=== PATIENT | male | born 1975 | race Caucasian/White ===

== ENCOUNTER → 2016-09-29 | Outpatient (CLI) | payer OTHER ==
[~2016-09-29] MED LIST: ACET-1256 PO; CODCAP4 PO; CYAN1CAP3 PO; CYAN500T13 PO; GLUCTAB7 PO; PRT40 PO
[2016-09-29 12:20] LABS: BASO % 0.5 %; BASO ABS # 0.03 K/uL (0-0.2); COMPLETE YES; EOS % 8.7 %; HEMATOCRIT 44.3 % (42-52); IG% 0.2 %; LYMPH % 24.1 %; MEAN CELL VOLUME 90.8 fL (80-100); MEAN CORPUSCULAR HEMOGLOBIN 29.3 pg (25-34); MEAN CORPUSCULAR HGB CONC 32.3 g/dl (32-36); MEAN PLATELET VOLUME 12.1 fL (7.4-10.4); MONO % 9.2 %; NEUT % 57.3 %; PLATELET COUNT 272 K/uL (130-400); RED BLOOD COUNT 4.88 M/uL (4.7-6.1); WHITE BLOOD COUNT 6.65 K/uL (4.8-10.8)
[2016-09-29 12:56] LABS: ALT/SGPT 24 U/L (12-78); BLOOD UREA NITROGEN 14 mg/dl (7-18); BUN/CREATININE RATIO 15.6 (10-20); C-REACTIVE PROTEIN < 0.29 mg/dl (0-0.29); CALCIUM 9.4 mg/dl (8.5-10.1); CARBON DIOXIDE 29 mmol/L (21-32); CHLORIDE 108 mmol/L (98-107); CHOLESTEROL 175 mg/dl (0-200); CREATININE 0.88 mg/dl (0.60-1.40); GLUCOSE 89 mg/dl (70-99); POTASSIUM 3.8 mmol/L (3.5-5.1); SODIUM 144 mmol/L (136-145); TRIGLYCERIDES 82 mg/dl (0-150); VERY LOW DENSITY LIPOPROT CALC 16 mg/dl
[2016-09-29 13:06] LABS: ALB/GLOB RATIO 1.2 (0.9-2); ALKALINE PHOSPHATASE 79 U/L (45-117); AST/SGOT 18 U/L (15-37); CHOLESTEROL/HDL RATIO 3.6; HDL CHOLESTEROL 49 mg/dl; LDL CHOLESTEROL CALCULATED 110 mg/dl
[2016-09-29 13:26] LABS: CYCLIC CITRULLINATED PEPT IGG 0.47 U/mL (0-4.99)
[2016-09-29 14:02] LABS: LYME DISEASE AB IGG NEG (NEG); LYME DISEASE AB IGM NEG (NEG)
[2016-10-02 16:32] LABS: IGA SERUM 207 mg/dL (81-463); TIS TRANS IGA 1 U/mL (<4)
== END | disposition home or self-care (01) ==
LOC: C.LABBFT 09:08
PROVIDERS: ATTEND Internal Medicine
DX: Z00.00 Encounter for general adult medical examination without abnormal findings (principal); Z87.898 Personal history of other specified conditions; K52.9 Noninfective gastroenteritis and colitis, unspecified; E53.8 Deficiency of other specified B group vitamins; R10.13 Epigastric pain; M25.50 Pain in unspecified joint; R21 Rash and other nonspecific skin eruption

== ENCOUNTER → 2016-12-15 | Day surgery (SDC) | payer OTHER ==
[2016-12-04 12:49] VITALS: Ht 171.5 cm; Wt 68.2 kg
[~2016-12-15] VITALS: Ht 171.5 cm; Wt 68.2 kg
[~2016-12-15] MED LIST changes: +CODCAP PO; -CODCAP4 PO; -CYAN1CAP3 PO; -GLUCTAB7 PO; +LIDOCAINE HCL 2% 2 ML VIAL (20MG/ML) ONE; +PROPOFOL IV EMULSION 10 MG/ML 20 ML VIAL IV ONE; -PRT40 PO
[2016-12-15 14:49] VITALS: TEMP 36.9
--- NOTE | 2016-12-15 14:57 | Endo History and Physical ---
History & Physical Date of Service: Dec 15, 2016. Chief Complaint: Abdominal pain, abnormal CT scan Referring Physician: Dr. Megan Valdez History of Present Illness 41 yo CM who presents for colonoscopy secondary to abnormal CT scan and abdominal pain. Past Surgical History Hx Cardiac Surgery: No Hx Internal Defibrillator: No Hx Pacemaker: No Hx Abdominal Surgery: No Hx of Implantable Prosthesis: No Hx Post-Op Nausea and Vomiting: No Hx Cancer Surgery: No Hx Thoracic Surgery: No Hx Orthopedic: Yes (ORIF R FEMUR) Hx Urinary Tract Surgery: No Social History Smoking Status: Former Smoker Hx Substance Use: No Hx Alcohol Use: No (QUIT 11 YRS AGO) Allergies Coded Allergies: NO KNOWN DRUG ALLERGIES (Verified Allergy, Unknown, NONE, 12/15/16) Poison Shaylee Extract/Poison [place] Extra (Verified Allergy, Unknown, BLISTERING , 12/15/16) Unclassified Drugs (Verified Allergy, Unknown, NON PRESCIOUS METALS-RASH WITH BELT MATTY, 12/15/16) Current Medications Reported Home Medications Medications Dose Route/Sig Max Daily Dose Days Date Category Tylenol (Acetaminophen) 500 Mg Tab 500 Mg PO PRN 12/04/16 Reported Vitamin B12 500MCG (Cyanocobalamin) 500 Mcg Tab 1,000 Mcg PO QAM 12/04/16 Reported Cod Liver Oil 1 Cap Cap 1 Cap PO QAM 05/09/16 Reported Vital Signs Weight (Kilograms): 68.18 Height (Feet): 5 Height (Inches): 7.5 Date Time Temp Pulse Resp B/P (MAP) Pulse Ox O2 Delivery O2 Flow Rate FiO2 12/15/16 14:49 36.9 76 18 111/68 (82) 99 Room Air Physical Exam General Appearance: WD/WN, no apparent distress Respiratory/Chest: Auscultation: breath sounds normal Cardiovascular: Heart Auscultation: RRR Abdomen: Bowel Sounds: normal Inspection & Palpation: soft, non-distended, no tenderness, guarding & rebound Assessment and Plan Assessment: 41 yo CM who presents for colonoscopy secondary to abnormal CT scan and abdominal pain. Plan: Proceed with colonoscopy.
--- NOTE | 2016-12-15 16:22 | Discharge Instructions ---
Endoscopy Patient Instructions Date / Procedure(s) Performed Dec 15, 2016. Colonoscopy Allergy Information Coded Allergies: NO KNOWN DRUG ALLERGIES (Verified Allergy, Unknown, NONE, 12/15/16) Poison Shaylee Extract/Poison [place] Extra (Verified Allergy, Unknown, BLISTERING , 12/15/16) Unclassified Drugs (Verified Allergy, Unknown, NON PRESCIOUS METALS-RASH WITH BELT MATTY, 12/15/16) Discharge Date / Findings Dec 15, 2016. Terminal ileitis s/p biopsies Random colon biopsies Medication Instructions 1) Start Entocort 9mg by mouth daily for 8 weeks 2) OK to resume all medications today as prescribed Reported Home Medications Medications Dose Route/Sig Max Daily Dose Days Date Category Tylenol (Acetaminophen) 500 Mg Tab 500 Mg PO PRN 12/04/16 Reported Vitamin B12 500MCG (Cyanocobalamin) 500 Mcg Tab 1,000 Mcg PO QAM 12/04/16 Reported Cod Liver Oil 1 Cap Cap 1 Cap PO QAM 05/09/16 Reported Provider Instructions Activity Restrictions - No exercising or heavy lifting for 24 hours. - Do not drink alcohol the day of the procedure. - Do not drive a car or operate machinery until the day after the procedure. - Do not make any important decisions or sign important papers in 24 hours after the procedure. Following Day: - Return to full activity which may include returning to work/school. Diet Start your diet with liquids and light foods (jello, soup, juice, toast). Then eat your usual diet if not nauseated. Treatment For Common After Affects For mild abdominal pain, bloating, or excessive gas: - Rest - Eat lightly - Lie on right side Follow-Up Information Follow-up with Dr. Megan Valdez as scheduled Anesthesia Information What You Should Know You have had a procedure that required some medicine to reduce anxiety and discomfort. This treatment is called moderate sedation. After receiving the treatment, you may be sleepy, but you will be able to breathe on your own. The effects of the treatment may last for several hours. Follow these instructions along with Activity/Diet recommendations noted above: * Do NOT do anything where dizziness or clumsiness would be dangerous. * Rest quietly at home today, then you can be up and about tomorrow. * Have a responsible person stay with you the rest of today. * You may have had an I.V. today. If so, you may take the dressing off later today. Recommendations Call your doctor if: * Trouble breathing * Continuous vomiting for more than 24 hours * Temperature above 101 degrees * Severe abdominal pain or bloating * Pain not relieved by pain medicine ordered * There is increased drainage or redness from any incision * A large amount of rectal bleeding greater than 2-3 tablespoons. (If you had a polyp/s removed or have hemorrhoids, a small amount of blood - from the rectum is to be expected.) * You have any unanswered questions or concerns. IN THE EVENT OF A SERIOUS EMERGENCY, GO TO THE NEAREST EMERGENCY ROOM Your discharge instructions were prepared by provider John Howard. Patient Instructions Signature Page Gage Carvalho Patient (or Guardian) Signature/Date: I have read and understand the instructions given to me by my caregivers. Caregiver/RN/Doctor Signature/Date: The above-named patient and/or guardian has received patient instructions on this date. + Original Patient Signature Page (only) stays with chart. Please make copy for patient.
--- NOTE | 2016-12-15 16:26 | GI REPORT ---
Procedure Date: 12/15/2016 3:27 PM Procedure: Colonoscopy Indications: Abdominal pain in the right lower quadrant, Abnormal CT of the GI tract Medicines: Monitored Anesthesia Care Complications: No immediate complications. Estimated Blood Loss: Estimated blood loss: none. Procedure: Pre-Anesthesia Assessment: - Prior to the procedure, a History and Physical was performed, and patient medications and allergies were reviewed. The patient's tolerance of previous anesthesia was also reviewed. The risks and benefits of the procedure and the sedation options and risks were discussed with the patient. All questions were answered, and informed consent was obtained. Prior Anticoagulants: The patient has taken no previous anticoagulant or antiplatelet agents. ASA Grade Assessment: II - A patient with mild systemic disease. After reviewing the risks and benefits, the patient was deemed in satisfactory condition to undergo the procedure. After I obtained informed consent, the scope was passed under direct vision. Throughout the procedure, the patient's blood pressure, pulse, and oxygen saturations were monitored continuously. The scope was introduced through the anus and advanced to the terminal ileum. The colonoscopy was performed without difficulty. The patient tolerated the procedure well. The quality of the bowel preparation was good. The terminal ileum, ileocecal valve, appendiceal orifice, and rectum were photographed. Findings: The terminal ileum contained multiple five mm ulcers. No bleeding was present. Biopsies were taken with a cold forceps for histology. The colon (entire examined portion) appeared normal. Multiple random biopsies were obtained with cold forceps for histology in the entire colon. Impression: - Multiple ulcers in the terminal ileum. Biopsied. - The entire examined colon is normal. - Multiple random biopsies were obtained in the entire colon. Recommendation: - Resume previous diet. - Use budesonide 9 mg PO one time per day for 8 weeks. - Repeat colonoscopy for surveillance based on pathology results. - Return to GI office in 2 weeks. John Howard DO 12/15/2016 4:25:36 PM This report has been signed electronically. Note Initiated On: 12/15/2016 3:27 PM I attest to the content of the Intraoperative Record and orders documented therein, exceptions below
--- NOTE | 2016-12-15 16:40 | Anesthesiology Progress Note ---
Anesthesia Post Op Note Date & Time Dec 15, 2016 at 16:40 Vital Signs Pain Intensity: 0 Vital Signs Past 12 Hours Date Time Temp Pulse Resp B/P (MAP) Pulse Ox O2 Delivery O2 Flow Rate FiO2 12/15/16 16:37 58 18 100/80 (87) 98 Room Air 12/15/16 16:22 65 16 91/53 (66) 98 Room Air 12/15/16 14:49 36.9 76 18 111/68 (82) 99 Room Air Notes Mental Status: alert / awake / arousable, participated in evaluation Pt Amnestic to Procedure: Yes Nausea / Vomiting: adequately controlled Pain: adequately controlled Airway Patency, RR, SpO2: stable & adequate BP & HR: stable & adequate Hydration State: stable & adequate Anesthetic Complications: no major complications apparent
[2016-12-15 16:52] VITALS: BP 113/62; PULSE 52; O2SAT 96
== END | disposition home or self-care (01) ==
LOC: C.GI 14:30
PROVIDERS: ATTEND Internal Medicine
DX: K52.9 Noninfective gastroenteritis and colitis, unspecified (principal); Z87.891 Personal history of nicotine dependence

== ENCOUNTER → 2016-12-24 | Outpatient (CLI) | payer OTHER ==
[~2016-12-24] MED LIST changes: -LIDOCAINE HCL 2% 2 ML VIAL (20MG/ML) ONE; -PROPOFOL IV EMULSION 10 MG/ML 20 ML VIAL IV ONE
[2016-12-24 12:22] LABS: BASO % 0.3 %; BASO ABS # 0.03 K/uL (0-0.2); COMPLETE YES; EOS % 2.2 %; HEMATOCRIT 44.2 % (42-52); IG% 0.2 %; LYMPH % 16.5 %; LYMPH ABS # 1.57 K/uL (1.2-3.4); MEAN CELL VOLUME 90.8 fL (80-100); MEAN PLATELET VOLUME 12.1 fL (7.4-10.4); MONO % 7.2 %; NEUT % 73.6 %; PLATELET COUNT 267 K/uL (130-400); RED BLOOD COUNT 4.87 M/uL (4.7-6.1); WHITE BLOOD COUNT 9.49 K/uL (4.8-10.8)
[2016-12-24 12:45] LABS: ALT/SGPT 22 U/L (12-78); AST/SGOT 14 U/L (15-37); BLOOD UREA NITROGEN 15 mg/dl (7-18); BUN/CREATININE RATIO 15.7 (10-20); C-REACTIVE PROTEIN < 0.29 mg/dl (0-0.29); CARBON DIOXIDE 30 mmol/L (21-32); CHLORIDE 108 mmol/L (98-107); CREATININE 0.94 mg/dl (0.60-1.40); GLUCOSE 85 mg/dl (70-99); POTASSIUM 3.7 mmol/L (3.5-5.1); SODIUM 142 mmol/L (136-145)
[2016-12-24 12:46] LABS: ALB/GLOB RATIO 1.2 (0.9-2); ALKALINE PHOSPHATASE 78 U/L (45-117)
[2016-12-24 12:49] LABS: HEPATITIS B AB NEG
[2016-12-26 12:09] LABS: QUANTIF TB AG-NIL <0.00 IU/ML; QUANTIFERON NIL 0.04 IU/ML
== END | disposition home or self-care (01) ==
LOC: C.LAB1850 10:38
PROVIDERS: ATTEND Registered Nurse
DX: K50.00 Crohn's disease of small intestine without complications (principal)

== ENCOUNTER → 2017-01-21 | Outpatient (CLI) | payer OTHER ==
[2017-01-21 12:23] LABS: BASO % 0.5 %; BASO ABS # 0.05 K/uL (0-0.2); COMPLETE YES; EOS % 2.5 %; HEMATOCRIT 46.2 % (42-52); IG% 0.3 %; MEAN CELL VOLUME 92.8 fL (80-100); MEAN CORPUSCULAR HEMOGLOBIN 29.7 pg (25-34); MEAN PLATELET VOLUME 11.8 fL (7.4-10.4); NEUT % 64.7 %; PLATELET COUNT 272 K/uL (130-400); RED BLOOD COUNT 4.98 M/uL (4.7-6.1); WHITE BLOOD COUNT 10.43 K/uL (4.8-10.8)
[2017-01-21 12:54] LABS: ALT/SGPT 23 U/L (12-78); BLOOD UREA NITROGEN 20 mg/dl (7-18); BUN/CREATININE RATIO 20.9 (10-20); C-REACTIVE PROTEIN < 0.29 mg/dl (0-0.29); CALCIUM 9.3 mg/dl (8.5-10.1); CARBON DIOXIDE 30 mmol/L (21-32); CHLORIDE 107 mmol/L (98-107); CREATININE 0.95 mg/dl (0.60-1.40); GLUCOSE 85 mg/dl (70-99); POTASSIUM 4.1 mmol/L (3.5-5.1); SODIUM 140 mmol/L (136-145)
[2017-01-21 12:56] LABS: ALB/GLOB RATIO 1.2 (0.9-2); ALKALINE PHOSPHATASE 77 U/L (45-117); AST/SGOT 18 U/L (15-37)
== END ==
LOC: C.LABBFT 10:43
PROVIDERS: ATTEND Registered Nurse
DX: K50.00 Crohn's disease of small intestine without complications (principal)

== ENCOUNTER → 2017-02-05 | Outpatient (CLI) | payer OTHER ==
[~2017-02-05] MED LIST changes: +OPTIRAY 320 IV PRN
--- NOTE | 2017-02-05 11:26 | DIAGNOSTIC IMAGING REPORT ---
CT SCAN OF THE ABDOMEN AND PELVIS WITH IV CONTRAST CLINICAL HISTORY: Crohn's disease. COMPARISON STUDY: Abdominal CT dated 05/09/2016. TECHNIQUE: Following the IV administration of 93 cc of Optiray 320, CT scan of the abdomen and pelvis is performed from the lung bases to the proximal femora. Images are reviewed in the axial, sagittal, and coronal planes. IV contrast was administered without complication. Automated dose control exposure was utilized. CT DOSE: 408.39 mGycm FINDINGS: Lung bases: The heart is normal in size and without pericardial effusion. The lung bases are clear. Liver: The contrast-enhanced liver is normal in size, contour, and attenuation. There is no intrahepatic biliary ductal dilatation. The hepatic veins and portal veins are patent. Gallbladder: Unremarkable. Spleen: Normal in size and attenuation. Pancreas: Unremarkable. Adrenal glands: Unremarkable. Kidneys: The contrast enhanced kidneys are normal in size and without hydronephrosis. The kidneys enhance symmetrically. Abdominal vasculature: The abdominal aorta is normal in course and caliber. Bowel: There is no bowel obstruction. Liquid stool is noted throughout the colon. There is wall thickening and hyperemia seen involving the distal/terminal ileum. This extends approximately 10 cm in length. There is mild productive change in the surrounding fat. No significant inflammatory stranding is seen. No additional abnormal bowel loops are identified. There is no evidence of fistula or abscess. No pneumatosis intestinalis or portal venous gas is observed. The appendix is well-visualized and normal. Peritoneum: There is no intraperitoneal free air. No abdominal ascites is seen. There is a small fat-containing umbilical hernia. Lymphadenopathy: Prominent mesenteric lymph nodes are likely on a reactive basis. Pelvic viscera: The bladder, prostate, and seminal vesicles are normal as visualized. Skeletal structures: No lytic or blastic lesions are seen. Postoperative changes partially visualized in the right femur. IMPRESSION: 1. There is wall thickening and hyperemia seen involving the distal/terminal ileum which extends approximately 10 cm in length. The appearance is consistent with a nonspecific ileitis, likely representing active Crohn's disease given the reported clinical history. 2. There is no bowel obstruction. No additional abnormal bowel loops are identified. 3. There is no abscess or evidence of fistula. 4. Liquid stool is noted throughout the colon correlate clinically for evidence of diarrhea. Electronically signed by: Buck Nunez M.D. 02/05/2017 11:25 AM Dictated Date/Time: 02/05/2017 11:14 AM
== END | disposition home or self-care (01) ==
LOC: C.CTS 09:55
PROVIDERS: ATTEND Registered Nurse
DX: K50.00 Crohn's disease of small intestine without complications (principal); R68.89 Other general symptoms and signs